=== PATIENT | male | born 1945 | race Caucasian/White ===

== ENCOUNTER 2018-07-10 16:14 | Emergency (ER) | payer MEDICARE, MEDICAID ==
[2018-07-10 16:34] VITALS: RESP 20
[2018-07-10 17:09] LABS: BASO % 0.5 % (0.0-2.0); EOS # 1.7 K/uL (0.0-0.7); EOS % 16.1 % (0.0-4.0); HEMOGLOBIN 16.2 g/dL (12.0-18.0); LYMPH # 3.7 K/uL (1.0-4.3); LYMPH % 34.9 % (20.0-40.0); MEAN CELL VOLUME 99.7 fl (80.0-94.0); MEAN CORPUSCULAR HEMOGLOBIN 32.9 pg (27.0-31.0); MEAN PLATELET VOLUME 9.3 fl (7.2-11.7); MONO # 0.8 K/uL (0.0-0.8); MONO % 7.3 % (0.0-10.0); NEUT # 4.4 K/uL (1.8-7.0); NEUT % 41.2 % (50.0-75.0); NRBC % 0.1 % (0.0-0.0); RBC 4.94 Mil/uL (4.40-5.90); WHITE BLOOD COUNT 10.7 K/uL (4.8-10.8)
--- NOTE | 2018-07-10 17:21 | ED PDOC ---
HPI: Abdomen Time Seen by Provider: 07/10/18 16:22 Chief Complaint (Nursing): Abdominal Pain Chief Complaint (Provider): Abdominal Pain History Per: Patient History/Exam Limitations: no limitations Onset/Duration Of Symptoms: Days (x3 months) Outside of [place] travel?: No Current Symptoms Are (Timing): Still Present Additional Complaint(s): 72 y/o male presents to the ED for evaluation of pain to the right groin, onset 3 months ago. Patient reports of having had two hernia repairs in 2007 in that same area. Patient describes pain as burning and has been hurting for approximately 3 months. Patient is requesting an XR at this time for further e valuation. Otherwise, patient denies fever and vomiting. [employer]ist #[id number] used to obtain history. PMD: [facility] Past Medical History Reviewed: Historical Data, Nursing Documentation, Vital Signs Vital Signs: Last Vital Signs Temp 97.8 F 07/10/18 16:33 Pulse 69 07/10/18 16:33 Resp 20 07/10/18 16:33 BP 151/89 H 07/10/18 16:33 Pulse Ox 97 07/10/18 16:33 - Medical History PMH: No Chronic Diseases - Surgical History Surgical History: Hernia Repair (x2 in 2007) - Family History Family History: States: Unknown Family Hx - Home Medications Home Medications: Ambulatory Orders Medication Instructions Recorded Naproxen/Esomeprazole Mag [Vimovo 1 each PO BID PRN #30 tab.ir. 04/11/16 375-20 mg Tablet] - Allergies Allergies/Adverse Reactions: Allergies Allergy/AdvReac Type Severity Reaction Status Date / Time No Known Allergies Allergy Verified 04/11/16 15:15 Review of Systems ROS Statement: Except As Marked, All Systems Reviewed And Found Negative Constitutional: Negative for: Fever Gastrointestinal: Negative for: Vomiting Genitourinary Male: Positive for: Other (Right sided groin pain) Physical Exam - Reviewed Nursing Documentation Reviewed: Yes Vital Signs Reviewed: Yes - Physical Exam Appears: Positive for: No Acute Distress Head Exam: Positive for: ATRAUMATIC, NORMOCEPHALIC Skin: Positive for: Normal Color, Warm, Dry Eye Exam: Positive for: Normal appearance, EOMI, PERRL Neck: Positive for: Normal, Painless ROM Cardiovascular/Chest: Positive for: Regular Rate, Rhythm. Negative for: Murmur Respiratory: Positive for: Normal Breath Sounds. Negative for: Respiratory Distress Gastrointestinal/Abdominal: Positive for: Normal Exam, Soft. Negative for: Tenderness Male Genital Exam: Positive for: other (Mild right sided inguinal tenderness). Negative for: hernia mass (no palpable mass) Back: Positive for: Normal Inspection. Negative for: L CVA Tenderness, R CVA Tenderness, Vertebral Tenderness Extremity: Positive for: Normal ROM. Negative for: Deformity Neurologic/Psych: Positive for: Alert, Oriented. Negative for: Motor/Sensory Deficits - Laboratory Results Result Diagrams: 07/10/18 17:04 07/10/18 17:04 - ECG O2 Sat by Pulse Oximetry: 97 (RA) Pulse Ox Interpretation: Normal Medical Decision Making Medical Decision Making: Time: 1703 Plan: -- CT Abd/Pelvis IV Contrast Only -- CMP -- CBC with Differentials -- Urine C&S -- Urinalysis Time: 1820 CT RESULTS FINDINGS: LOWER THORAX: There is linear atelectasis/scarring in the visualized lungs. There is subsegmental atelectasis in the right lung base. LIVER: Normal in size with homogeneous enhancement. No gross lesion or ductal dilatation. GALLBLADDER AND BILE DUCTS: Well distended. No calcified gallstones, wall thickening or pericholecystic fluid. PANCREAS: Normal in size with homogeneous enhancement. No gross lesion or ductal dilatation. SPLEEN: Normal in size and appearance. ADRENALS: No discrete nodule. Mild thickening of the left adrenal gland. KIDNEYS AND URETERS: Normal in size with homogeneous enhancement. No hydronephrosis. No solid mass. There are simple cortical cysts in the left kidney, the largest exophytic cyst in the upper pole measures 4.1 x 2.8 cm. VASCULATURE: No aortic aneurysm. Aortic atherosclerotic calcifications are present. BOWEL: Evaluation of the bowel is limited in the absence of oral contrast. There is mild dilatation of small bowel loops. There is mild mural thickening in the colonic wall. There is scattered colonic diverticulosis without CT evidence for acute diverticulitis. APPENDIX: Normal appendix. PERITONEUM: No free fluid. No free air. LYMPH NODES: No enlarged lymph nodes. BLADDER: Well distended and normal in appearance. REPRODUCTIVE: The prostate gland is normal in size. BONES: No acute fracture. There is diffuse bone demineralization and multilevel degenerative changes in the spine. OTHER FINDINGS: There is a small sliding hiatal her. IMPRESSION: Mild dilatation of small bowel loops and mild mural thickening in the colon may represent nonspecific acute infectious/inflammatory enterocolitis. No CT evidence for inguinal or ventral wall hernia. Scattered colonic diverticulosis without CT evidence for acute diverticulitis. Time: 1838 -- On re-evaluation patient reports symptoms have improved. On exam, abdomen is soft and non-tender. Patient is stable for discharge home. Scribe Attestation: Documented by Diamond Richmond, acting as a scribe for Maeve Aguillon MD. Provider Scribe Attestation: All medical record entries made by the Scribe were at my direction and personally dictated by me. I have reviewed the chart and agree that the record accurately reflects my personal performance of the history, physical exam, medical decision making, and the department course for this patient. I have also personally directed, reviewed, and agree with the discharge instructions and disposition. Disposition - Clinical Impression Clinical Impression: Abdominal pain - Disposition Referrals: [facility] [Outside] Say Barajas MD [Staff Provider] - Condition: IMPROVED Additional Instructions: follow up with your primary doctor in 1-2 days (in [place]) for reevaluation as well as GI referral given return to the ED with any worsening or concerning symptoms Instructions: Stomach Ache and Stomach Upset Forms: [employer] (Lebanese), [employer] (Slovenian) Print Language: ARGENTINE
[2018-07-10 17:26] LABS: ALB/GLOB RATIO 1.2 (1.0-2.1); ALBUMIN 4.4 g/dL (3.5-5.0); ALT/SGPT 29 U/L (21-72); AST/SGOT 30 U/L (17-59); BLOOD UREA NITROGEN 20 mg/dl (9-20); CALCIUM 9.1 mg/dL (8.4-10.2); GFR NON-AFRICAN AMERICAN > 60
[2018-07-10] MEDS ORDERED: Sodium Chloride 0.9% 50 ML IV ONE (17:46)
[2018-07-10] MEDS ORDERED: Iohexol 300 100 ML IJ ONE (17:46)
--- NOTE | 2018-07-10 18:25 | CT ---
Date of service: 07/10/2018 PROCEDURE: CT Abdomen and Pelvis with contrast HISTORY: abdominal pain rule out r hernia COMPARISON: None available. TECHNIQUE: CT scan of the abdomen and pelvis was performed after administration of intravenous contrast. Oral contrast was not administered. Coronal and sagittal reformatted images were obtained. Contrast dose: 90 mL Omnipaque 300 Radiation dose: Total exam DLP = 379.54 mGy-cm. This CT exam was performed using one or more of the following dose reduction techniques: Automated exposure control, adjustment of the mA and/or kV according to patient size, and/or use of iterative reconstruction technique. FINDINGS: LOWER THORAX: There is linear atelectasis/scarring in the visualized lungs. There is subsegmental atelectasis in the right lung base. LIVER: Normal in size with homogeneous enhancement. No gross lesion or ductal dilatation. GALLBLADDER AND BILE DUCTS: Well distended. No calcified gallstones, wall thickening or pericholecystic fluid. PANCREAS: Normal in size with homogeneous enhancement. No gross lesion or ductal dilatation. SPLEEN: Normal in size and appearance. ADRENALS: No discrete nodule. Mild thickening of the left adrenal gland. KIDNEYS AND URETERS: Normal in size with homogeneous enhancement. No hydronephrosis. No solid mass. There are simple cortical cysts in the left kidney, the largest exophytic cyst in the upper pole measures 4.1 x 2.8 cm. VASCULATURE: No aortic aneurysm. Aortic atherosclerotic calcifications are present. BOWEL: Evaluation of the bowel is limited in the absence of oral contrast. There is mild dilatation of small bowel loops. There is mild mural thickening in the colonic wall. There is scattered colonic diverticulosis without CT evidence for acute diverticulitis. APPENDIX: Normal appendix. PERITONEUM: No free fluid. No free air. LYMPH NODES: No enlarged lymph nodes. BLADDER: Well distended and normal in appearance. REPRODUCTIVE: The prostate gland is normal in size. BONES: No acute fracture. There is diffuse bone demineralization and multilevel degenerative changes in the spine. OTHER FINDINGS: There is a small sliding hiatal her. IMPRESSION: Mild dilatation of small bowel loops and mild mural thickening in the colon may represent nonspecific acute infectious/inflammatory enterocolitis. No CT evidence for inguinal or ventral wall hernia. Scattered colonic diverticulosis without CT evidence for acute diverticulitis.
[2018-07-10 18:28] LABS: SQUAMOUS EPITHIAL < 1 /hpf (0-5); URINE BILIRUBIN NEGATIVE (NEGATIVE); URINE BLOOD NEGATIVE (NEGATIVE); URINE CLARITY CLEAR (Clear); URINE COLOR YELLOW (YELLOW); URINE GLUCOSE (UA) NEG (Normal); URINE LEUKOCYTE ESTERASE NEG Leu/uL (Negative); URINE PROTEIN NEGATIVE (NEGATIVE); URINE UROBILINOGEN 0.2-1.0 mg/dL (0.2-1.0)
[2018-07-10 19:03] VITALS: BP 120/70; PULSE 70; TEMP 98.3; O2SAT 98
== END 2018-07-10 19:03 | disposition home or self-care (01) ==
LOC: H.ER 16:14 → SUPCPDRO 16:14 → H.ER 19:03
DX: R10.9 Unspecified abdominal pain (principal); K57.30 Diverticulosis of large intestine without perforation or abscess without bleeding
CPT/HCPCS: 74177; 80053; 81003; 85025; 87086; 99283; Q9967

== ENCOUNTER 2018-09-09 09:22 | Emergency (ER) | payer MEDICARE, MEDICAID ==
[2018-09-09 09:26] VITALS: BMI 25.0
[2018-09-09] MEDS ORDERED: Albuterol-Ipratrop 3 mg / 0.5 (3 ml) UD IH STA (09:47)
[2018-09-09] MEDS ORDERED: Albuterol-Ipratrop 3 mg / 0.5 (3 ml) UD ONE (09:50)
--- NOTE | 2018-09-09 09:50 | ED PDOC ---
HPI: CCC, URI, Sore Throat Time Seen by Provider: 09/09/18 09:33 Chief Complaint (Nursing): Shortness Of Breath History Per: Patient Onset/Duration Of Symptoms: Days (7) Current Symptoms Are (Timing): Still Present Associated Symptoms: Cough, Sputum. denies: Fever, Sore Throat Severity: Mild Additional Complaint(s): Cough productive yellow/white sputum x 1 week. Denies fever or SOB. Smokes x 60 yrs. On no meds Past Medical History Vital Signs: Last Vital Signs Temp 98.4 F 09/09/18 09:26 Pulse 68 09/09/18 09:26 Resp 18 09/09/18 09:26 BP 166/91 H 09/09/18 09:26 Pulse Ox 96 09/09/18 09:26 - Medical History PMH: No Chronic Diseases - Surgical History Surgical History: Hernia Repair (x2 in 2007) - Family History Family History: States: Unknown Family Hx - Home Medications Home Medications: Ambulatory Orders Medication Instructions Recorded Naproxen/Esomeprazole Mag [Vimovo 1 each PO BID PRN #30 tab.ir. 04/11/16 375-20 mg Tablet] Albuterol HFA [Ventolin HFA 90 2 puff IH Q4H #1 puff 09/09/18 mcg/actuation (8 g)] Amoxicillin/Potassium Clav 1 tab PO TID #30 tab 09/09/18 [Augmentin 500 mg-125 mg] - Allergies Allergies/Adverse Reactions: Allergies Allergy/AdvReac Type Severity Reaction Status Date / Time No Known Allergies Allergy Verified 09/09/18 09:43 Curb-65 Severity Score - CURB-65 Severity Score Confusion: No Bun >19mg/dl (>7mmol/L): No Respiratory Rate greater than/equal to 30: No Systolic BP <90 or Diastolic BP less than/equal 60mmHg: No Age >64: Yes Curb-65 Score: 1 Percentage 30-day mortality: 2.7% Review of Systems ROS Statement: Except As Marked, All Systems Reviewed And Found Negative Constitutional: Negative for: Fever Respiratory: Positive for: Cough, Wheezing Physical Exam - Reviewed Nursing Documentation Reviewed: Yes Vital Signs Reviewed: Yes - Physical Exam Appears: Positive for: Non-toxic, No Acute Distress Head Exam: Positive for: ATRAUMATIC, NORMAL INSPECTION, NORMOCEPHALIC Skin: Positive for: Normal Color, Warm, DRY Eye Exam: Positive for: EOMI, Normal appearance, PERRL ENT: Positive for: Normal ENT Inspection Neck: Positive for: Normal, Painless ROM Cardiovascular/Chest: Positive for: Regular Rate, Rhythm Respiratory: Positive for: Rhonchi, Wheezing. Negative for: Respiratory Distress Gastrointestinal/Abdominal: Positive for: Normal Exam, Soft Back: Positive for: Normal Inspection Extremity: Positive for: Normal ROM Neurologic/Psych: Positive for: Alert, Oriented - ECG O2 Sat by Pulse Oximetry: 96 Medical Decision Making Medical Decision Making: ? RLL infiltrate on CXR. No evidence of sepsis, CURB65 score of 1. Pt feels better. Will treat with Augmentin and inhaler as outpt Disposition - Clinical Impression Clinical Impression: Pneumonia - Patient ED Disposition Is Patient to be Admitted: No - Disposition Referrals: [facility] [Outside] Disposition: Routine/Home Disposition Time: 11:01 Condition: FAIR Prescriptions: Albuterol HFA [Ventolin HFA 90 mcg/actuation (8 g)] 2 puff IH Q4H #1 puff Amoxicillin/Potassium Clav [Augmentin 500 mg-125 mg] 1 tab PO TID #30 tab Instructions: Pneumonia in Adults Forms: [employer] (Ethiopian) Print Language: ARMENIAN
[2018-09-09 11:32] VITALS: BP 144/75; PULSE 62; RESP 16; TEMP 98.1; O2SAT 95
--- NOTE | 2018-09-09 12:04 | RAD ---
Date of service: 09/09/2018 HISTORY: Cough COMPARISON: 07/10/2008 TECHNIQUE: Chest PA and lateral FINDINGS: LINES AND TUBES: None. LUNG AND PLEURA: The lungs are well inflated. There is confluent airspace disease in the right lower lobe and linear scarring in the left lower lobe. No pleural effusion or pneumothorax. HEART AND MEDIASTINUM: The heart is not enlarged. No aortic atherosclerotic calcifications present. The hilar and mediastinal contours are within normal limits. SKELETAL STRUCTURES: The bony structures are within normal limits for the patient's age. VISUALIZED UPPER ABDOMEN: Normal. OTHER FINDINGS: None. IMPRESSION: Confluent airspace disease in the right lower lobe may represent pneumonia. Follow-up after medical management is recommended to ensure complete resolution.
== END 2018-09-09 11:31 | disposition home or self-care (01) ==
LOC: H.ER 09:22
DX: J18.9 Pneumonia, unspecified organism (principal)